=== PATIENT | female | born 1955 | race Caucasian/White ===

== ENCOUNTER 2016-12-28 01:10 | Emergency (ER) | payer OTHER ==
[~2016-12-28] VITALS: Ht 157.5 cm; Wt 77.1 kg
[~2016-12-28 01:10] MED LIST: ABILIFY5 MG PO; APA PO; CLOBETASOL PROP0.052 TP; GAS RELIEF 8080 MG PO; HYDROCODONE PO; MECLIZINE25 M2 PO; MOTRIN800 MG PO; NAPROXEN550 MG PO; NORCO 325 MG-7.1 TAB PO; PAXIL20 MG PO; PROZAC20 MG PO; SOMA350 MG PO; WELLBUTRIN SR150 MG PO; XALATAN 0.005%2.5 ML OP; XANAX0.5 MG PO; ZESTRIL20 MG PO
[2016-12-28 01:21] VITALS: BP 140/86
--- NOTE | 2016-12-28 01:39 | NUR ---
TO ER BED 4
[2016-12-28] MEDS ORDERED: KETOROLAC 60 MG/2 ML VIAL IM ONE (02:20)
[2016-12-28 03:41] VITALS: BP 138/78
--- NOTE | 2016-12-28 03:41 | NUR ---
Patient discharged with v/s stable. Written and verbal after care instructions given and explained BY DR. FUENTES. Patient alert, oriented and verbalized understanding of instructions. Ambulatory with steady gait. All questions addressed prior to discharge. ID band removed. Patient advised to follow up with PMD. Rx of NAPROSYN given. Patient educated on indication of medication including possible reaction and side effects. Opportunity to ask questions provided and answered.
== END 2016-12-28 03:41 | disposition home or self-care (01) ==
LOC: MED 01:10
DX: S13.4XXA Sprain of ligaments of cervical spine, initial encounter (principal); S80.02XA Contusion of left knee, initial encounter; I10 Essential (primary) hypertension; E11.9 Type 2 diabetes mellitus without complications; W01.0XXA Fall on same level from slipping, tripping and stumbling without subsequent striking against object, initial encounter; Y93.89 Activity, other specified; Y92.89 Other specified places as the place of occurrence of the external cause; Y99.8 Other external cause status
CPT/HCPCS: 72125; 73562; 96372; 99284; J1885; Q0092

== ENCOUNTER 2017-03-31 23:18 | Emergency (ER) | payer OTHER ==
[~2017-03-31] VITALS: Ht 157.5 cm; Wt 77.1 kg
[~2017-03-31 23:18] MED LIST changes: -ABILIFY5 MG PO; +ACET-2043 PO; +ALPR0.5T2 PO; -APA PO; +ARIP5TAB10 PO; +BUPR150T12 PO; +CARI350T PO; +CLOB0.0521 TP; -CLOBETASOL PROP0.052 TP; +FLUO-387 PO; -GAS RELIEF 8080 MG PO; -HYDROCODONE PO; +IBUP-974 PO; +LISI-420 PO; +MECL-272 PO; -MECLIZINE25 M2 PO; -MOTRIN800 MG PO; -NAPROXEN550 MG PO; -NORCO 325 MG-7.1 TAB PO; +PAX20 PO; -PAXIL20 MG PO; -PROZAC20 MG PO; +SIME80CT43 PO; -SOMA350 MG PO; -WELLBUTRIN SR150 MG PO; -XALATAN 0.005%2.5 ML OP; +XALOS OP; -XANAX0.5 MG PO; -ZESTRIL20 MG PO; +[UNRECOGNIZED DRUG - CODE] PO
[2017-03-31 23:41] VITALS: BP 139/90
--- NOTE | 2017-04-01 00:48 | NUR ---
PATIENT AMBULATED TO ER OF3.
--- NOTE | 2017-04-01 01:00 | NUR ---
PATIENT BEING EVALUATED BY DR. GRIFFITH.
[2017-04-01] MEDS ORDERED: KETOROLAC 60 MG/2 ML VIAL IM ONE (01:50)
[2017-04-01] MEDS ORDERED: KETOROLAC 15 MG/ML VIAL ONE (02:01)
[2017-04-01 02:15] VITALS: BP 127/82
--- NOTE | 2017-04-01 02:15 | NUR ---
Patient discharged with v/s stable. Written and verbal after care instructions given and explained. Patient verbalized understanding. Ambulatory with to home. All questions addressed prior to discharge. Advised to follow up with PMD.
== END 2017-04-01 02:15 | disposition home or self-care (01) ==
LOC: MED 23:18
DX: M17.0 Bilateral primary osteoarthritis of knee (principal); E11.9 Type 2 diabetes mellitus without complications; I10 Essential (primary) hypertension; F32.9 Major depressive disorder, single episode, unspecified; Z90.49 Acquired absence of other specified parts of digestive tract; Z90.89 Acquired absence of other organs
CPT/HCPCS: 96372; 99283; J1885